=== PATIENT | male | born 1980 | race Caucasian/White ===

== ENCOUNTER 2017-09-02 23:12 | Emergency (ER) | payer BC, OTHER ==
[~2017-09-02 23:12] MED LIST: Sodium Chloride 0.9% 1,000 ML BAG ONE
[2017-09-02] MEDS ORDERED: Morphine 10 MG/ML VIAL ONE (23:54)
[2017-09-02] MEDS ORDERED: Ondansetron HCl/PF 4 MG/2 ML Vial ONE (23:55)
[2017-09-02] MEDS ORDERED: Ketorolac Tromethamine 30 MG/ML VIAL ONE (23:55)
--- NOTE | 2017-09-03 00:06 | CT ---
CT ABDOMEN AND PELVIS: 09/02/2017 HISTORY: Pain. COMPARISON: None. TECHNIQUE: Serial axial CT imaging at 5 mm intervals, from the lung bases through the pubic symphysis, without c ontrast. Coronal reformatted imaging obtained. FINDINGS: The lack of contrast limits assessment of the viscera, bowel, and vascular structures, and for lympha denopathy. The imaged lung bases are unremarkable. No free intraperitoneal air or fluid is seen. The liver, gallbladder, spleen, pancreas, adrenal glands, and left kidney. There is hydronephrosis a nd hydroureter on the left. There is an obstructing stone in the mid right ureter and axial level of the 4-5 disk interspace measuring approximately 4 mm. Small, fat-containing inguinal hernias are present bilaterally. Limited assessment of the bowel appears grossly unremarkable. No acute osseous abnormality. IMPRESSION: Evidence of obstructive uropathy on the right secondary to a 4 mm obstructing stone within the mid ri ght ureter. POS: [facility]
[2017-09-03] MEDS ORDERED: Tamsulosin HCl 0.4 MG CAP ONE (00:14)
[2017-09-03 00:31] LABS: #Basophils 0.1 thou/uL (0.0-0.2); #Eosinphils 0.4 thou/uL (0.0-0.7); #Lymphocytes 2.4 thou/uL (1.20-3.40); #Monocytes 0.8 thou/uL (0.11-0.59); #Neutrophils 5.1 thou/uL (1.40-6.50); %Basophils 1.2 % (0.0-1.0); %Eosinophils 4.3 % (0.0-10.0); %Lymphocytes 27.1 % (21.0-51.0); %Monocytes 9.1 % (0.0-10.0); %Neutrophils 58.3 % (42.0-75.0); Hemoglobin 13.7 g/dL (14.0-18.0); Mean Corpuscular HGB CONC 34.9 g/dL (32.0-36.0); Mean Corpuscular Hemoglobin 30.3 pg (27.0-31.0); Mean Corpuscular Volume 86.8 fl (80.0-94.0); Mean Platelet Volume 6.9 fL (7.4-10.4); Platelet Count 224 thou/uL (130-400); RBC Distribution Width 11.7 % (11.5-14.5); Red Blood Cell (RBC) Count 4.53 mill/uL (4.70-6.10); White Blood Cell (WBC) Count 8.8 thou/uL (4.8-10.8)
[2017-09-03 00:35] LABS: Anion Gap 16 mmol/L (10-20); BUN (Urea Nitrogen) 11 mg/dL (8.9-20.6); Calc. Creatinine Clearance 0 mL/min (70-130); Calcium 9.1 mg/dL (7.8-10.44); Carbon Dioxide 27 mmol/L (22-29); Chloride 103 mmol/L (98-107); Estimated GFR-MDRD 77; Glucose 100 mg/dL (70-105); Potassium 3.5 mmol/L (3.5-5.1); Sodium 142 mmol/L (136-145)
[2017-09-03 01:33] LABS: Bilirubin Negative (Negative); Blood, Urine Moderate (Negative); Clarity Cloudy (Clear); Glucose, Urine (Dipstick) Negative (Negative); Leukocyte Negative (Negative); Nitrite Negative (Negative); Protein, Urine (Dipstick) 30 mg/dL (Neg-Trace); Urobilinogen 0.2 mg/dL (0.2-1.0)
[2017-09-03 01:37] LABS: Bacteria/HPF 1+ HPF (None Seen); RBC/HPF 21-50 HPF (0-3); Specific Gravity, Urine 1.029 (1.002-1.036)
== END 2017-09-03 00:50 | disposition home or self-care (01) ==
LOC: MADERS 23:12
DX: N20.0 Calculus of kidney (principal); F17.220 Nicotine dependence, chewing tobacco, uncomplicated
CPT/HCPCS: 36415; 74176; 80048; 81003; 81015; 85025; 96361; 96374; 96375; J1885; J2270; J2405; J7050

== ENCOUNTER 2018-05-28 16:51 | Emergency (ER) | payer BC, OTHER ==
[2018-05-28 18:17] LABS: Prothrombin Time 13.3 SEC (12.0-14.7)
[2018-05-28 18:25] LABS: ALT (SGPT) 30 U/L (8-55); AST (SGOT) 25 U/L (5-34); Alkaline Phosphatase 85 U/L (40-150); Anion Gap 15 mmol/L (10-20); BUN (Urea Nitrogen) 12 mg/dL (8.9-20.6); Bilirubin, Total 0.3 mg/dL (0.2-1.2); Calc. Creatinine Clearance 0 mL/min (70-130); Calcium 9.3 mg/dL (7.8-10.44); Carbon Dioxide 25 mmol/L (22-29); Chloride 105 mmol/L (98-107); Estimated GFR-MDRD Greater than 90; Globulin 3.1 g/dL (2.4-3.5); Glucose 97 mg/dL (70-105); Protein, Total 7.1 g/dL (6.0-8.3); Sodium 141 mmol/L (136-145)
--- NOTE | 2018-05-28 19:37 | CT ---
NONCONTRAST CT HEAD: 05/28/18 HISTORY: Injury. Right lateral peripheral vision loss. Associated sinus pressure. COMPARISON: None available. FINDINGS: There is no evidence of a hemorrhage, acute infarction, mass effect, or midline shift. The ventricula r system is normal in size, shape and position. polypoid mucosal thickening is seen in the bilateral maxillary antra with opacification of several ethmoidal air cells bilaterally. Mastoid air cells are clear. Calvarial structures are intact. IMPRESSION: 1. No acute intracranial abnormality is demonstrated. 2. Sinus disease. POS: [facility]
[2018-05-30 08:09] LABS: #Basophils 0.1 thou/uL (0.0-0.2); #Eosinphils 0.4 thou/uL (0.0-0.7); #Lymphocytes 1.2 thou/uL (1.20-3.40); #Monocytes 0.5 thou/uL (0.11-0.59); #Neutrophils 2.8 thou/uL (1.40-6.50); %Basophils 1.2 % (0.0-1.0); %Eosinophils 8.1 % (0.0-10.0); %Lymphocytes 23.3 % (21.0-51.0); %Monocytes 10.4 % (0.0-10.0); Hemoglobin 14.2 g/dL (14.0-18.0); Mean Corpuscular HGB CONC 33.3 g/dL (32.0-36.0); Mean Corpuscular Hemoglobin 30.3 pg (27.0-31.0); Mean Corpuscular Volume 90.8 fL (78.0-98.0); Mean Platelet Volume 6.5 fL (7.4-10.4); Platelet Count 205 thou/uL (130-400); Red Blood Cell (RBC) Count 4.69 mill/uL (4.70-6.10)
== END 2018-05-28 19:22 | disposition home or self-care (01) ==
LOC: MADERS 16:51
DX: J01.90 Acute sinusitis, unspecified (principal); H53.9 Unspecified visual disturbance; F17.220 Nicotine dependence, chewing tobacco, uncomplicated
CPT/HCPCS: 36415; 70450; 80053; 85025; 85610; 93005

== ENCOUNTER 2020-02-07 07:25 | Emergency (ER) | payer OTHER ==
[2020-02-07] MEDS ORDERED: Bacitracin 1 PK ONE (07:56)
[2020-02-07] MEDS ORDERED: Lidocaine 1% 20 ML MDV ONE (07:56)
== END 2020-02-07 08:45 | disposition home or self-care (01) ==
LOC: MADERS 07:25
DX: L03.032 Cellulitis of left toe (principal); F17.220 Nicotine dependence, chewing tobacco, uncomplicated
CPT/HCPCS: 10060

== ENCOUNTER 2020-02-19 16:44 | Emergency (ER) | payer OTHER | END 2020-02-19 17:13 | disposition home or self-care (01) | LOC: MADERS 16:44 | DX: L03.032 Cellulitis of left toe (principal); F17.220 Nicotine dependence, chewing tobacco, uncomplicated | CPT/HCPCS: 99283 ==

== ENCOUNTER 2020-09-10 18:59 | Emergency (ER) | payer OTHER ==
[2020-09-10] MEDS ORDERED: Lidocaine 1% 20 ML MDV ONE (19:27)
== END 2020-09-10 20:20 | disposition home or self-care (01) ==
LOC: MADERS 18:59
DX: L03.031 Cellulitis of right toe (principal); F17.220 Nicotine dependence, chewing tobacco, uncomplicated
CPT/HCPCS: 10060

== ENCOUNTER 2022-01-13 15:08 | Emergency (ER) | payer OTHER ==
[2022-01-13] MEDS ORDERED: Bacitracin 1 PK ONE (19:58)
== END 2022-01-13 15:40 | disposition home or self-care (01) ==
LOC: MADERS 15:08
DX: T18.128A Food in esophagus causing other injury, initial encounter (principal); K22.2 Esophageal obstruction
CPT/HCPCS: 99283

== ENCOUNTER 2022-04-20 06:17 | Emergency (ER) | payer OTHER ==
[2022-04-20] MEDS ORDERED: Cyclobenzaprine 10 MG TAB ONE (07:05)
[2022-04-20] MEDS ORDERED: Dexamethasone 4 MG TAB ONE (07:05)
== END 2022-04-20 07:27 | disposition home or self-care (01) ==
LOC: MADERS 06:17
DX: M62.830 Muscle spasm of back (principal); K21.9 Gastro-esophageal reflux disease without esophagitis; F17.220 Nicotine dependence, chewing tobacco, uncomplicated; Z79.899 Other long term (current) drug therapy
CPT/HCPCS: 99283; J8540

== ENCOUNTER 2024-04-06 17:52 | Emergency (ER) | payer OTHER ==
[2024-04-06] MEDS ORDERED: Cyclobenzaprine 10 MG TAB ONE (18:18)
[2024-04-06] MEDS ORDERED: Ketorolac Tromethamine 30 MG (1 mL) VIAL ONE (18:18)
== END 2024-04-06 18:48 | disposition home or self-care (01) ==
LOC: MADERS 17:52
DX: M43.6 Torticollis (principal); K21.9 Gastro-esophageal reflux disease without esophagitis; F17.220 Nicotine dependence, chewing tobacco, uncomplicated; Z55.6 Problems related to health literacy; Z79.899 Other long term (current) drug therapy
CPT/HCPCS: 96372; 99283; J1885